=== PATIENT | female | born 1975 | race Two or more races ===

== ENCOUNTER → 2016-07-06 | Outpatient (CLI) | payer OTHER ==
[~2016-07-06] MED LIST: ALBUTEROL2.5 MG/3 M; ALLEGRA PO; ATORVASTATIN CA10 MG PO; CARAFATE1 GM PO; CINNAMON PO; CONTRAVE ER 8-1 EACH PO; EDARBI40 MG PO; ENTRESTO 24 MG1 EACH PO; EXCEDRIN MIGRAI1 TA2 PO; LANSOPRAZOLE30 M2 PO; METOPROLOL TART25 MG PO; MONTELUKAST SOD10 MG PO; ONDANSETRON HCL4 M1 PO; PAIN & FEVER500 MG PO; PRILOSEC PO; PROAIR HFA8.5 GM INH; PROMETHAZI6.25 MG/5 PO; SYMBICORT INH; VITAMIN E400 UNI4 PO
--- NOTE | ~2016-07-06 | US6 ---
[facility] A Service of [facility] & [facility] RADIOLOGY TEXT RESULTS PATIENT: ABRAM REYES LOCATION: [facility] : 75 UNIT #: [id number] AGE: [address]: Xi Edmond MD SEX: F ORDER DR: [id number] [facility]. [place], [place] [address] [id number] O MR#: [id number] Acc #: [id number] NAME: ABRAM REYES : 1975 SEX: F STUDY DATE/TIME: 07/06/2016 8:31 UNIT: US ROOM: STUDY DESCRIPTION: US Abdominal Limited Attending Physician: Xi Edmond M.D. Referring Physician: Xi Edmond M.D. Ordering Physician: Xi Edmond M.D. Primary Care Physician: Xi Edmond M.D. MEDICAL IMAGING REPORT This report is preliminary unless electronic signature is present EXAM Right upper quadrant ultrasound, 07/06/2016. HISTORY Right upper quadrant abdominal pain for 2 weeks with nausea, vomiting, and diarrhea. Unable to hold fold food down for 2 weeks. FINDINGS The liver demonstrates an increase in echotexture with attenuation of the ultrasound beam characteristic of fatty infiltration. No cystic or solid mass lesions were seen in the liver. The intra and extrahepatic bile ducts are not dilated. The gallbladder is normal with no evidence of cholelithiasis, wall thickening, or pericholecystic fluid. The common duct measures 7 mm. The pancreas is poorly visualized due to overlying bowel gas. The right kidney is normal. IMPRESSION 1. Fatty infiltration of the liver. 2. Normal gallbladder. 3. Poor visualization of the pancreas due to overlying bowel gas. Dictated by... Magdaleno Young M.D. THIS IS AN ELECTRONICALLY VERIFIED REPORT Magdaleno Young M.D. at 07/07/2016 7:44 AM SUNDEEP/darya TD: 07/06/2016 10:01 JOB #: [id number] [facility] A Service of [facility] & [facility] RADIOLOGY TEXT RESULTS PATIENT: ABRAM REYES LOCATION: [facility] #: [id number] : 75 UNIT #: [id number] AGE: [address]: Xi Edmond MD SEX: F ORDER DR: MEDICAL IMAGING REPORT Page 1 of 1 COPY
== END | disposition home or self-care (01) ==
LOC: CGUS 07:04
DX: R10.13 Epigastric pain (principal); R11.2 Nausea with vomiting, unspecified; K76.0 Fatty (change of) liver, not elsewhere classified
CPT/HCPCS: 76705

== ENCOUNTER → 2016-08-13 | Outpatient (CLI) | payer OTHER ==
--- NOTE | ~2016-08-13 | NM22 ---
[facility] A Service of [facility] RADIOLOGY TEXT RESULTS PATIENT: ABRAM REYES LOCATION: [facility] : 75 UNIT #: [id number] AGE: [address]: Vasile Alberts III, MD SEX: F ORDER DR: [id number] [place], [place] [address] [id number] O MR#: [id number] Acc #: [id number] NAME: ABRAM REYES : 1975 SEX: F STUDY DATE/TIME: 08/13/2016 7:50 UNIT: [facility] ROOM: STUDY DESCRIPTION: JONY Hepatobiliary W GB Pharm Attending Physician: Vasile Alberts III, M.D. Referring Physician: Vasile Alberts III, M.D. Ordering Physician: Vasile Alberts III, M.D. Primary Care Physician: Xi Edmond M.D. MEDICAL IMAGING REPORT This report is preliminary unless electronic signature is present EXAM Hepatobiliary scan with Kinevac. PROCEDURE Study performed with 5.72 mCi technetium-99m Choletec followed by 2.8 mcg Kinevac IV. HISTORY Right upper quadrant and epigastric pain, nausea, and vomiting for two months. FINDINGS Following Choletec administration, there was prompt uptake by hepatocytes, clearance from the blood pool, excretion into the biliary tree, and filling of the gallbladder and eventually the small bowel. Following Kinevac administration, calculated gallbladder ejection fraction is 82%. IMPRESSION Normal HIDA scan including normal ejection fraction of 82%. No evidence of biliary obstruction. Dictated by... Hector Yañez M.D. THIS IS AN ELECTRONICALLY VERIFIED REPORT Hector Yañez M.D. at 08/19/2016 1:15 PM TEV/pc [facility] A Service of [facility] RADIOLOGY TEXT RESULTS PATIENT: ABRAM REYES LOCATION: [facility] : 75 UNIT #: [id number] AGE: [address]: Vasile Alberts III, MD SEX: F ORDER DR: TD: 08/13/2016 11:49 JOB #: [id number] MEDICAL IMAGING REPORT Page 1 of 1 COPY
== END | disposition home or self-care (01) ==
LOC: CNUC 06:54
DX: R11.10 Vomiting, unspecified (principal)
CPT/HCPCS: 78227; A9537; J2550; J2805

== ENCOUNTER → 2016-08-14 | Day surgery (SDC) | payer OTHER ==
--- NOTE | ~2016-08-14 | OR ---
Unit #: [id number] #: [id number] Patient: ABRAM REYES [id number] [address] [place], [place] [address] [id number] O MR#: [id number] NAME: ABRAM REYES ROOM: Date of Procedure: 08/14/2016 Admission Date: 08/14/2016 Surgeon: Vasile Alberts III, M.D. : 1975 Attending Physician: Vasile Alberts III, M.D. Primary Care Physician: Xi Edmond M.D. OPERATIVE REPORT PREOPERATIVE DIAGNOSIS Chronic cholecystitis. POSTOPERATIVE DIAGNOSIS Chronic cholecystitis. PROCEDURE PERFORMED Laparoscopic cholecystectomy. MANUFACTURING WORKER Dr. Devonte Vogt. SPECIMENS Gallbladder to pathology. COMPLICATIONS None apparent. ESTIMATED BLOOD LOSS Minimal. INDICATIONS FOR PROCEDURE This is a 41-year-old lady, who has typical biliary colic symptoms and had reproduction of symptoms during her HIDA scan. She understands risks and benefits, and wishes to proceed. DESCRIPTION OF PROCEDURE After consent was obtained, the patient was brought to the operating room and placed in the supine position. General anesthetic was administered. Her abdomen was prepped and draped in standard surgical fashion. I made a 5-mm incision in the right upper quadrant using Optiview to enter into the peritoneal cavity without any difficulty. CO2 pneumoperitoneum was then established. Next, a second 5-mm port was placed in the supraumbilical region and an 11-mm port was placed in the midepigastric region and a third 5-mm port was placed in the right lateral subcostal region. I began by trying to identify the gallbladder. She had some adhesions that were obscuring it. I was able to grasp the gallbladder retracted superiorly and carefully take down the adhesions of the omentum to expose the body of the gallbladder. I then retracted it superiorly and laterally and was able to dissect out the cystic duct and cystic artery and after these were clearly and carefully identified, I placed 2 clips proximally and 1 clip distally along both structures and then they were divided. I then took Unit #: [id number] #: [id number] Patient: ABRAM REYES the gallbladder off the liver bed using the hook cautery. The gallbladder was extracted through the midepigastric port site with some dilatation of the fascia. I had excellent hemostasis and all needle, sponge, and instrument counts were correct x2. I reapproximated the defect at the epigastric port site with a neoClose device. I then removed all trocars. Pneumoperitoneum was released. I injected all port sites with 0.25% plain Marcaine. I reapproximated the skin edges with interrupted 4-0 Vicryl subcuticular suture. Steri-Strips were then applied. The patient tolerated the procedure without any problems and returned to the recovery room in stable condition. Dictated by... Vasile Alberts III, M.D. VCL/sunny TD: 08/15/2016 22:29 JOB #: [id number] OPERATIVE REPORT Page 1 of 1 X Vasile Alberts III, MD PROCEDURE OPERATIVE NOTE
--- NOTE | ~2016-08-14 | EKG ---
PATIENT: ABRAM REYES UNIT #: [id number] Ventricular Rate: 63 BPM Atrial Rate: 63 BPM P-R Interval: 172 ms QRS Duration: 184 ms Q-T Interval: 480 ms QTC Calculation(Bezet): 491 ms P Winnett: 18 degrees Calculated R Winnett: 39 degrees Calculated T Winnett: -41 degrees Diagnosis Line: Electronic ventricular pacemaker Diagnosis Line: When compared with ECG of 04-SEP-2015 07:46, Diagnosis Line: Electronic ventricular pacemaker has replaced Diagnosis Line: Sinus rhythm Diagnosis Line: Confirmed by KASSY LEONARDO MD ([id number]) on Diagnosis Line: 08/14/2016 9:53:21 PM INTERPRETING MD: FREEDOM
[2016-08-14 07:52] LABS: HEMOGLOBIN 11.9 gm/dL (12.0-16.0); MEAN CELL VOLUME 90.6 FL (83-96); MEAN CORPUSCULAR HGB CONC 33.1 g/dL (30-36); MEAN PLATELET VOLUME 7.9 FL (6.5-11.5); RED BLOOD COUNT 3.97 X10e (3.90-5.30); RED CELL DISTRIBUTION WIDTH 13.3 % (11.0-15.5); WHITE BLOOD COUNT 4.3 X10e3 (4.0-10.5)
[2016-08-14 08:20] LABS: BUN/CREATININE RATIO 7.77; CALCIUM SERUM 8.5 mg/dL (8.4-10.2); CREATININE SERUM 0.9 mg/dL (0.6-1.4); GLOM FILT RATE Estimated 79.5 mL/min (>60); POTASSIUM 4.3 mmol/L (3.5-5.1)
== END | disposition home or self-care (01) ==
LOC: CSUR 06:09
PROVIDERS: Surgery
DX: K81.1 Chronic cholecystitis (principal); I11.0 Hypertensive heart disease with heart failure; I50.9 Heart failure, unspecified; K21.9 Gastro-esophageal reflux disease without esophagitis; J45.909 Unspecified asthma, uncomplicated; E78.5 Hyperlipidemia, unspecified; G43.909 Migraine, unspecified, not intractable, without status migrainosus; E66.01 Morbid (severe) obesity due to excess calories; I42.9 Cardiomyopathy, unspecified; F32.9 Major depressive disorder, single episode, unspecified; G47.30 Sleep apnea, unspecified; Z88.0 Allergy status to penicillin; Z88.8 Allergy status to other drugs, medicaments and biological substances; Z95.810 Presence of automatic (implantable) cardiac defibrillator; Z79.899 Other long term (current) drug therapy; Z82.49 Family history of ischemic heart disease and other diseases of the circulatory system; Z68.42 Body mass index [BMI] 45.0-49.9, adult
CPT/HCPCS: 80048; 84703; 85027; 88304; 93005; J0360; J1100; J1885; J2250; J2405; J2710; J2765; J3010